=== PATIENT | male | born 1985 | race Caucasian/White ===

== ENCOUNTER 2019-06-16 09:09 | Emergency (ER) | payer BC ==
[2019-06-16 09:37] VITALS: BP 115/82
--- NOTE | 2019-06-16 09:54 | UC ---
Respiratory Complaint HPI - HPI Summary HPI Summary: cough x 3 days cough is productive with yellow sputum worse with deep breathing, better with rest + very high fever of 102 plus, chills , sore throat, body aches - History of Current Complaint Chief Complaint: UCRespiratory Stated Complaint: FLU LIKE SYMP Time Seen by Provider: 06/16/19 09:45 Hx Obtained From: Patient Onset/Duration: Gradual Onset, Lasting Days - 3, Still Present Timing: Constant Severity Initially: Moderate Severity Currently: Moderate Pain Intensity: 0 Character: Cough: Productive Aggravating Factors: Exertion, Deep Breaths Alleviating Factors: Nothing Associated Signs And Symptoms: Positive: Fever, Chills, URI, Nasal Congestion. Negative: Dyspnea, Pleuritic Chest Pain, Wheezing, Hemoptysis, Dizziness, Calf Pain, Calf Swelling - Allergies/Home Medications Allergies/Adverse Reactions: Allergies Allergy/AdvReac Type Severity Reaction Status Date / Time No Known Allergies Allergy Verified 06/16/19 09:31 Home Medications: Home Medications Acetaminophen [Acetaminophen Extra Strength] 1,000 mg PO Q6H PRN 06/16/19 [ History Confirmed 06/16/19] guaiFENesin [Mucinex] 600 mg PO BID PRN 06/16/19 [History Confirmed 06/16/19] PMH/Surg Hx/FS Hx/Imm Hx Previously Healthy: Yes - Surgical History Surgical History: None - Family History Known Family History: Positive: Non-Contributory - Social History Alcohol Use: None Substance Use Type: None Smoking Status (MU): Never Smoked Tobacco Review of Systems All Other Systems Reviewed And Are Negative: Yes Constitutional: Positive: Fever, Chills, Fatigue Skin: Positive: Negative Eyes: Positive: Negative ENT: Positive: Sore Throat, Nasal Discharge Respiratory: Positive: Cough Musculoskeletal: Positive: Arthralgia, Myalgia Is Patient Immunocompromised?: No Physical Exam Triage Information Reviewed: Yes Appearance: Well-Appearing, No Pain Distress, Well-Nourished Vital Signs: Initial Vital Signs Temp 98 F 06/16/19 09:32 Pulse 125 06/16/19 09:32 Resp 18 06/16/19 09:32 BP 115/82 06/16/19 09:32 Pulse Ox 98 06/16/19 09:32 Vital Signs Reviewed: Yes Eye Exam: Normal Eyes: Positive: Conjunctiva Clear ENT: Positive: Normal ENT inspection, Hearing grossly normal, Pharynx normal, Nasal drainage, TMs normal Neck exam: Normal Neck: Positive: Supple, Nontender, No Lymphadenopathy Respiratory: Positive: Chest non-tender, Lungs clear, Normal breath sounds Cardiovascular: Positive: Tachycardia Abdominal Exam: Normal Respiratory Course/Dx - Differential Dx/Diagnosis Provider Diagnosis: Influenza Discharge ED - Sign-Out/Discharge Documenting (check all that apply): Patient Departure All imaging exams completed and their final reports reviewed: No Studies - Discharge Plan Condition: Stable Disposition: HOME Patient Education Materials: Influenza (ED) Referrals: No Primary Care Phys,NOPCP [Primary Care Provider] - If Needed - Billing Disposition and Condition Condition: STABLE Disposition: Home
--- NOTE | 2019-06-17 13:11 | UC ---
- Progress Note Progress Note: pt requesting extension to work note wrote out of work until fever free x 24 hours Course/Dx - Diagnoses Provider Diagnoses: Influenza Discharge ED - Sign-Out/Discharge Documenting (check all that apply): Post-Discharge Follow Up All imaging exams completed and their final reports reviewed: No Studies - Discharge Plan Condition: Stable Disposition: HOME Patient Education Materials: Influenza (ED) Forms: *Gen. Provider Communication Referrals: No Primary Care Phys,NOPCP [Primary Care Provider] - If Needed - Billing Disposition and Condition Condition: STABLE Disposition: Home
== END 2019-06-16 09:56 | disposition home or self-care (01) ==
LOC: UCCORT 09:09 → EDSEX 09:09 → EDBD 09:09 → UCCORT 09:56
DX: J11.1 Influenza due to unidentified influenza virus with other respiratory manifestations (principal)
CPT/HCPCS: 99201; G0463